=== PATIENT | male | born 1960 | race Caucasian/White ===

== ENCOUNTER 2021-05-12 22:06 | Emergency (ER) | payer MEDICAID ==
[~2021-05-12] VITALS: Ht 167.6 cm; Wt 78.6 kg
[2021-05-12 22:24] VITALS: BP 115/77
[2021-05-12] MEDS ORDERED: SULF1TAB49 PO (23:38)
== END 2021-05-12 23:47 | disposition home or self-care (01) ==
LOC: ER 22:08
DX: L03.116 Cellulitis of left lower limb (principal); M79.605 Pain in left leg; Z88.0 Allergy status to penicillin; Z88.5 Allergy status to narcotic agent; Z88.8 Allergy status to other drugs, medicaments and biological substances; Z79.2 Long term (current) use of antibiotics
CPT/HCPCS: 99284